=== PATIENT | male | born 1960 | race Caucasian/White ===

== ENCOUNTER → 2020-12-24 15:39 | Outpatient (BNVA) | payer BC, SELFPAY | PROVIDERS: PCP Internal Medicine; Visit Provider Urology ==

== ENCOUNTER 2021-03-01 07:19 | Day surgery (SDC) | payer BC, SELFPAY ==
[2021-03-01] VITALS (8 sets, daily range): BP systolic 106–125; BP diastolic 54–69; PULSE 68–84; RESP 12–19; TEMP 36.1–36.6; O2SAT 95–98; BMI 25.7
[2021-03-01 07:51] LABS: Glucose, Whole Blood 88 mg/dL (60-115)
[2021-03-01] MEDS: levoFLOXacin 500 MG TABLET PO (07:56)
--- NOTE | 2021-03-01 08:01 | HO.ANESPROP2 ---
[facility] Active Problems Active Problems: All Active Problems (Updated 12/24/20 @ 16:36 by Papo Liao MD) BPH w urinary obs/LUTS (Acute) Weak urinary stream (Acute) Nocturia (Acute) Incomplete emptying of bladder (Acute) Past Medical History Medical History (Updated 12/24/20 @ 16:36 by Papo Liao MD) Incomplete emptying of bladder Nocturia Weak urinary stream Functional capacity: independent ambulation Family History Family history of problems with anesthesia: No Surgical History History of Problems with Anesthesia: No Social History Social History Patient Tobacco Use Status: Never used Tobacco Use of substances other than those prescribed or required for medical reasons: No Have you been hit, kicked, punched, or otherwise hurt by someone within the past year? If so, by whom?: No Are you DNR?: No Advance Directives: No Advance Directives Information Provided: Yes Recently lost weight without trying: No Meds Allergies Allergy/AdvReac Type Severity Reaction Status Date / Time No Known Allergies Allergy Verified 12/24/20 15:43 Home Medications Medication Instructions Recorded Confirmed Last Taken Type atorvastatin 20 mg tablet 20 mg PO DAILY 12/24/20 02/23/21 Unknown History blood sugar diagnostic #10 ea 12/24/20 Unknown History canagliflozin 300 mg tablet 300 mg PO DAILY 12/24/20 02/23/21 Unknown History fluticasone propionate 44 1 puff PO BID 12/24/20 02/23/21 Unknown History mcg/actuation HFA aerosol inhaler insulin aspart U-100 100 unit/mL 48 unit SUBCUT TID 12/24/20 02/23/21 Unknown History (3 mL) subcutaneous pen insulin degludec 100 unit/mL (3 26 unit SUBCUT DAILY 12/24/20 02/23/21 Unknown History mL) subcutaneous pen lisdexamfetamine 70 mg capsule 70 mg PO QAM 12/24/20 02/23/21 Unknown History lisinopril 10 mg tablet 10 mg PO DAILY 12/24/20 02/23/21 Unknown History methylphenidate HCl 10 mg tablet 10 mg PO BID 12/24/20 02/23/21 Unknown History montelukast 10 mg tablet 10 mg PO DAILY 12/24/20 02/23/21 Unknown History pitolisant 17.8 mg tablet mg PO 12/24/20 Unknown History sodium, calcium, magnesium, ml PO 12/24/20 Unknown History potassium oxybates 0.5 gram/mL oral soln albuterol sulfate 90 mcg/actuation 2 puff PO QID PRN 02/23/21 02/23/21 Unknown History aerosol inhaler Exam Exam Date and Time: March 01, 2021 0801 Height,Weight and Vital Signs: Height 5 ft 11 in Weight 83.915 kg Last Vital Signs Temp 98 F 03/01/21 07:46 Pulse 68 03/01/21 07:46 Resp 19 03/01/21 07:46 BP 106/62 03/01/21 07:46 Pulse Ox 98 03/01/21 07:46 Pertinent Lab Results Pertinent Lab Results: Laboratory Tests 03/01/21 07:47 POC Glucose 88 Airway Neck ROM: Full Heart: RRR Lungs: CTA Assessment and Plan Final Anesthetic Review Family History of Problems with Anesthesia: No History of Problems with Anesthesia: No
[2021-03-01] MEDS: Lactated Ringers 500 ML 20 ML IVCONT (08:13)
--- NOTE | 2021-03-01 08:55 | P.HPSUR_ITS ---
Pre-Procedural Eval Section A Date of Service: 03/01/21 Section B Chief Complaint: Benign Prostatic Hyperplasia Details of Present Illness: Plan for GreenLight laser prostatectomy Relevant Family History (Specify if Yes): No Relevant Social History: None Present Medications: see Short Stay Collaborative assessment Medical History: No relevant PMH History of Previous Operations: No relevant previous surgery Allergies: Allergies Allergy/AdvReac Type Severity Reaction Status Date / Time No Known Allergies Allergy Verified 12/24/20 15:43 Review of Systems Sugical H&P ROS: Negative: Constitution, Cardiovascular, Respiratory, Neurolog ical, Psychiatric, Hem-Onc, Allergic/Immunologic, Gastrointestinal, Genitourinary, Musculoskeletal, Integumentary, Endocrine and Eyes/Ears/Nose/Throat Exam Surgical H&P Exam: Normal: HEENT, Normal: Heart, Normal: Lungs, Normal: Extremities, Normal: Abdomen, Normal: Skin and Normal: Neurological Plan Diagnosis/Plan: Unchanged (GreenLight laser prostatectomy) I have reviewed the history and physical and performed a pertinent physical examination on my patient. No changes have occurred unless specified.
--- NOTE | 2021-03-01 09:51 | W.PM.OPN ---
Operative Note Operative Note Date of Service: 03/01/21 Narrative: PreOperative Diagnosis: Bladder outlet obstruction Post Operative Diagnosis: Bladder outlet obstruction Procedure: GreenLight laser enucleation of the prostate Surgeon: Dr Papo Liao Anesthesia: General Indications for procedure: History of bladder outlet obstruction. Treated with alpha-phuong and other medications. Still with symptoms. On cystoscopy in office has tight bladder neck. Recommendation for prostate procedure with laser enucleation of prostate. It has been discussed. Focus was placed on development of retrograde examination which is a normal part of this procedure. Procedure: After informed consent was verified the patient was brought to the operating room and placed in a supine position. Anesthesia was administered per protocol. Patient was placed in modified dorsal lithotomy position and prepped and draped in a sterile fashion. Safety pause time-out was confirmed. Antibiotics have been given. Twenty-four Barbadian laser cystoscope was inserted per urethra. No abnormalities found the anterior posterior urethra. The bladder was filled on both ureteric orifices were seen in normal position away from our area of interest. Using a GreenLight laser settings of 80 w incisions were made at the 5 and 7 o'clock position. They were taken down and then laterally on each side. They were brought from the bladder neck down to the level of the veru. These defined the lateral aspects of the median lobe area. The median lobe was ablated and enucleated tissue removed. Once the median lobe area had been cleaned attention was directed to the lateral lobes. We started with the patient's left lateral lobe. Firstly the 05:00 o'clock groove was further developed. This was moved in the lateral position to undermine the tissue on the lateral side. Focus was then placed on the laser at the 1 o'clock position in developing a secondary groove down to the level of bladder fibers. The intervening tissue between these 2 grooves was removed with a combination of enucleation ablation working from the apex toward the bladder neck. A similar procedure was repeated on the patient's right-hand side. When this was completed debris and pieces of prostate removed from the bladder. Both ureteric orifices were reviewed again in shown to be patent in away from any areas of energy damage. The apical area was reviewed in any stray ooze was controlled. A 22 Barb[place] 30 cc balloon Subramanian catheter was placed over stylet into the bladder. Clear efflux was obtained. 30 cc was placed in the balloon and gentle traction was placed. A snap was used to hold tension once the patient will be moved and transported. Once transportation its finish this novel be removed. A belladonna and opiate suppository was placed for postprocedure pain management. He tolerated procedure well was extubated in the operating and transferred in a stable condition to the recovery area. 78 kJ, 10:22 lasing time Trabeculations during distention. Similar to cystitis bladder except minimal terminal hematuria. May have OAB dry. Pathology: Prostate tissue Drains: Subramanian catheter
[2021-03-01] MEDS: oxyCODONE HCl Immed Release 5 MG TABLET PO (10:37)
[2021-03-01] MEDS: Acetaminophen 325 MG TABLET 650 MG PO (10:38)
--- NOTE | 2021-05-19 15:43 | P.OP_ITS ---
Operative Note Operative Note Date of Service: 03/01/21 Narrative: PreOperative Diagnosis: Bladder outlet obstruction Post Operative Diagnosis: Bladder outlet obstruction Procedure: GreenLight laser enucleation of the prostate Surgeon: Dr Papo Liao Anesthesia: General Indications for procedure: History of bladder outlet obstruction. Treated with alpha-phuong and other medications. Still with symptoms. On cystoscopy in office has tight bladder neck. Recommendation for prostate procedure with laser enucleation of prostate. It has been discussed. Focus was placed on development of retrograde examination which is a normal part of this procedure. Procedure: After informed consent was verified the patient was brought to the operating room and placed in a supine position. Anesthesia was administered per protocol. Patient was placed in modified dorsal lithotomy position and prepped and draped in a sterile fashion. Safety pause time-out was confirmed. Antibiotics have been given. Twenty-four [place]bour[place] laser cystoscope was inserted per urethra. No abnormalities found the anterior posterior urethra. The bladder was filled on both ureteric orifices were seen in normal position away from our area of interest. Using a GreenLight laser settings of 80 w incisions were made at the 5 and 7 o'clock position. They were taken down and then laterally on each side. They were brought from the bladder neck down to the level of the veru. These defined the lateral aspects of the median lobe area. The median lobe was ablated and en ucleated tissue removed. Once the median lobe area had been cleaned attention was directed to the lateral lobes. We started with the patient's left lateral lobe. Firstly the 05:00 o'clock groove was further developed. This was moved in the lateral position to undermine the tissue on the lateral side. Focus was then placed on the laser at the 1 o'clock position in developing a secondary groove down to the level of bladder fibers. The intervening tissue between these 2 grooves was removed with a combination of enucleation ablation working from the apex toward the bladder neck. A similar procedure was repeated on the patient's right-hand side. When this was completed debris and pieces of prostate removed from the bladder. Both ureteric orifices were reviewed again in shown to be patent in away from any areas of energy damage. The apical area was reviewed in any stray ooze was controlled. A 22 [place] 30 cc balloon Subramanian catheter was placed over stylet into the bladder. Clear efflux was obtained. 30 cc was placed in the balloon and gentle traction was placed. A snap was used to hold tension once the patient will be moved and transported. Once transportation its finish this novel be removed. A belladonna and opiate suppository was placed for postprocedure pain management. He tolerated procedure well was extubated in the operating and transferred in a stable condition to the recovery area. Pathology: Prostate tissue Drains: Subramanian catheter
== END 2021-03-01 11:15 | disposition home or self-care (01) ==
PROVIDERS: PCP Internal Medicine; Visit Provider Urology
PROC: (CPT 52648; principal; 2021-03-01 09:00)
DX: N40.1 Benign prostatic hyperplasia with lower urinary tract symptoms (principal); N13.8 Other obstructive and reflux uropathy; R39.12 Poor urinary stream; R35.1 Nocturia; R33.9 Retention of urine, unspecified
CPT/HCPCS: 52648; 82947; 88305; J1100; J2250; J2370; J2405; J3010

== ENCOUNTER → 2021-03-04 08:18 | Outpatient (BNVA) | payer BC, SELFPAY | PROVIDERS: PCP Internal Medicine; Visit Provider Urology | DX: N40.1 Benign prostatic hyperplasia with lower urinary tract symptoms (principal); N13.8 Other obstructive and reflux uropathy; R33.9 Retention of urine, unspecified; R35.1 Nocturia; R39.12 Poor urinary stream; Z46.6 Encounter for fitting and adjustment of urinary device | CPT/HCPCS: 51700 ==

== ENCOUNTER → 2021-05-18 15:11 | Outpatient (BNVA) | payer BC, SELFPAY | PROVIDERS: PCP Internal Medicine; Visit Provider Urology | DX: N40.1 Benign prostatic hyperplasia with lower urinary tract symptoms (principal); N13.8 Other obstructive and reflux uropathy; R39.12 Poor urinary stream | CPT/HCPCS: 51798 ==

== ENCOUNTER → 2021-11-26 15:40 | Outpatient (BNVA) | payer BC, SELFPAY | PROVIDERS: PCP Internal Medicine; Visit Provider Urology | DX: N40.1 Benign prostatic hyperplasia with lower urinary tract symptoms (principal); N13.8 Other obstructive and reflux uropathy | CPT/HCPCS: 51798 ==

== ENCOUNTER 2022-11-30 13:26 | Outpatient (REF) | payer BC, SELFPAY | END 2022-11-30 13:27 | disposition home or self-care (01) | LOC: HO.LAB 13:26 | PROVIDERS: Visit Provider Urology | DX: Z12.5 Encounter for screening for malignant neoplasm of prostate (principal); N13.8 Other obstructive and reflux uropathy; N40.1 Benign prostatic hyperplasia with lower urinary tract symptoms | CPT/HCPCS: 36415; 84153 ==

== ENCOUNTER → 2022-12-02 15:37 | Outpatient (BNVA) | payer BC, SELFPAY | PROVIDERS: PCP Internal Medicine; Visit Provider Urology | DX: N40.1 Benign prostatic hyperplasia with lower urinary tract symptoms (principal); R10.2 Pelvic and perineal pain | CPT/HCPCS: 51798 ==